=== PATIENT | female | born 1935 | race Asian ===

== ENCOUNTER → 2017-11-30 | Outpatient (CLI) | payer OTHER ==
[~2017-11-30] MED LIST: ANASTROZOLE1 MG PO; ANTACID650 MG PO; ASPIRIN325 PO; CALCIUM 600 +1 EAC1 PO; COREG3.125 MG PO; COZAAR 50 MG TA50 M2 PO; FOSAMAX 70 MG T70 MG PO; GLUCOPHAGE500 MG PO; KEFLEX500 MG PO; LASIX 40 MG TAB40 M2 PO; LEVOTHYROXINE 0.1 MG PO; LISINOPRIL-HCT1 EACH PO; LISINOPRIL20 MG PO; LOVASTAT20 PO; MOBIC15 MG PO; MOMETASONE FURO45 G1 TP; NEURONTIN600 MG PO; NORVASC 5 MG TAB5 MG PO; NORVASC10 MG PO; NORVASC5 MG PO; PLAVIX 75 MG TA75 MG PO; PRINIVIL10 MG PO; PROTONIX40 M1 PO; SYNTHROID50 MCG PO; VITAMIN D 5050000 I1 PO; VITAMIN D2000 UNIT PO; [UNRECOGNIZED DRUG - OTHER]; [UNRECOGNIZED DRUG - SUPPLY] MISCELL
== END ==
LOC: M.RAD 11-27 13:30
DX: C50.911 Malignant neoplasm of unspecified site of right female breast (principal); R92.1 Mammographic calcification found on diagnostic imaging of breast; I10 Essential (primary) hypertension; E11.40 Type 2 diabetes mellitus with diabetic neuropathy, unspecified; M81.0 Age-related osteoporosis without current pathological fracture; E78.5 Hyperlipidemia, unspecified

== ENCOUNTER → 2018-04-16 | Outpatient (CLI) | payer OTHER | LOC: M.RAD 11:12 | DX: I51.7 Cardiomegaly (principal); R09.89 Other specified symptoms and signs involving the circulatory and respiratory systems; M47.814 Spondylosis without myelopathy or radiculopathy, thoracic region; M85.80 Other specified disorders of bone density and structure, unspecified site ==

== ENCOUNTER → 2018-11-18 | Outpatient (CLI) | payer OTHER | LOC: M.RAD 14:05 | DX: M85.811 Other specified disorders of bone density and structure, right shoulder (principal); M19.011 Primary osteoarthritis, right shoulder; I70.0 Atherosclerosis of aorta; I11.9 Hypertensive heart disease without heart failure; R91.8 Other nonspecific abnormal finding of lung field; Z91.040 Latex allergy status; Z88.8 Allergy status to other drugs, medicaments and biological substances ==

== ENCOUNTER → 2018-11-22 | Outpatient (CLI) | payer OTHER | LOC: M.MRI 14:06 | DX: S43.401A Unspecified sprain of right shoulder joint, initial encounter (principal); M62.511 Muscle wasting and atrophy, not elsewhere classified, right shoulder; M19.011 Primary osteoarthritis, right shoulder; M25.411 Effusion, right shoulder; X58.XXXA Exposure to other specified factors, initial encounter; Y93.89 Activity, other specified; Y92.89 Other specified places as the place of occurrence of the external cause; Y99.8 Other external cause status ==

== ENCOUNTER → 2019-06-07 | Outpatient (CLI) | payer OTHER | LOC: M.RAD 05-17 14:29 | DX: Z12.31 Encounter for screening mammogram for malignant neoplasm of breast (principal); M81.8 Other osteoporosis without current pathological fracture; Z85.3 Personal history of malignant neoplasm of breast ==